=== PATIENT | male | born 1985 | race Two or more races ===

== ENCOUNTER 2024-10-04 23:54 | Emergency (ER) | payer BC ==
[~2024-10-04] VITALS: Ht 175.3 cm; Wt 117.9 kg
[2024-10-05] MEDS ORDERED: IBUP-1957 PO (01:41)
[2024-10-05] MEDS ORDERED: PRED50TA PO (01:41)
[2024-10-05] MEDS ORDERED: CARI350T PO (01:41)
[2024-10-05] MEDS ORDERED: HYDR-3972 PO (01:41)
[2024-10-05] MEDS ORDERED: dexaMETHasone SOD PHOSPHATE 1 ML ONE (01:49)
[2024-10-05] MEDS ORDERED: CARISOPRODOL 350 MG TABLET ONE (01:49)
[2024-10-05] MEDS: dexaMETHasone SOD PHOSPHATE 4 MG/ML VIAL IM ONE (01:50)
[2024-10-05] MEDS ORDERED: MORPHINE SULFATE INJ 4 MG/ML DISP.SYRIN ONE (01:50)
[2024-10-05] MEDS: MORPHINE SULFATE INJ 2 MG/ML DISP.SYRIN IM ONE (01:50)
[2024-10-05] MEDS: CARISOPRODOL 350 MG TABLET PO ONE (01:50)
[2024-10-05 02:41] VITALS: BP 134/86; TEMP 98.2; O2SAT 98
== END 2024-10-05 02:42 | disposition home or self-care (01) ==
LOC: ER 10-05 00:06
DX: S39.012A Strain of muscle, fascia and tendon of lower back, initial encounter (principal); I10 Essential (primary) hypertension; Z79.1 Long term (current) use of non-steroidal anti-inflammatories (NSAID); Z79.52 Long term (current) use of systemic steroids; X50.0XXA Overexertion from strenuous movement or load, initial encounter; Y93.89 Activity, other specified; Y92.89 Other specified places as the place of occurrence of the external cause; Y99.8 Other external cause status
CPT/HCPCS: 99285; 72131; 96372 ×2; J1100; J2270